=== PATIENT | male | born 1985 | race Native Hawaiian/Other Pacific Islander ===

== ENCOUNTER 2021-09-24 06:51 | Emergency (ER) | payer BC ==
[~2021-09-24] VITALS: Ht 182.9 cm; Wt 99.8 kg
[2021-09-24 06:58] VITALS: TEMP 97.8
[2021-09-24 08:03] LABS: PLATELET COUNT 198 K/uL (142-355)
[2021-09-24 13:10] VITALS: BP 135/91
== END 2021-09-24 13:14 | disposition still patient (30) ==
LOC: ED 06:51
PROVIDERS: Emergency Medicine
DX: J03.90 Acute tonsillitis, unspecified (principal); J36 Peritonsillar abscess; R22.1 Localized swelling, mass and lump, neck; R00.0 Tachycardia, unspecified; R03.0 Elevated blood-pressure reading, without diagnosis of hypertension; F41.8 Other specified anxiety disorders
CPT/HCPCS: 36415; 80048; 84484; 85027; 87651; 93005; 96374; 99284; J1885; Q9963